=== PATIENT | female | born 1960 | race African-American/Black ===

== ENCOUNTER 2022-01-22 15:19 | Emergency (ER) | payer MEDICARE, OTHER ==
[2022-01-22] MEDS ORDERED: hydrALAZINE 20 MG/ML VIAL ONE ×2 (16:10→18:33)
[2022-01-22 16:41] LABS: #Eosinphils 0.1 10x3/uL (0.0-0.5); #Monocytes 0.5 10x3/uL (0.0-1.1); #Neutrophils 3.2 10x3/uL (1.5-8.4); %Basophils 0.3 % (0.0-2.0); %Lymphocytes 43.8 % (18.0-47.0); %Monocytes 7.6 % (0.0-10.0); Hemoglobin 10.4 g/dL (12.0-15.5); Mean Corpuscular Hemoglobin 26.5 pg (27.0-33.0); Mean Corpuscular Volume 85.5 fl (81.6-98.3); Mean Platelet Volume 10.1 fl (7.4-10.4); Platelet Count 316 10x3/uL (150-450); RBC Distribution Width 13.2 % (11.5-14.5); Red Blood Cell (RBC) Count 3.93 10x6/uL (3.90-5.03); White Blood Cell (WBC) Count 6.7 10x3/uL (3.5-10.5)
[2022-01-22 16:51] LABS: ALT (SGPT) 17 U/L (8-55); AST (SGOT) 20 U/L (5-34); Albumin 4.2 g/dL (3.4-4.8); Alkaline Phosphatase 83 U/L (40-110); Anion Gap 12 mmol/L (10-20); BUN (Urea Nitrogen) 10 mg/dL (9.8-20.1); Bilirubin, Total 0.3 mg/dL (0.2-1.2); Calc. Creatinine Clearance 0 mL/min (70-130); Calcium 10.1 mg/dL (7.8-10.44); Carbon Dioxide 31 mmol/L (23-31); Chloride 102 mmol/L (98-107); Estimated GFR 81; Globulin 3.4 g/dL (2.4-3.5); Glucose 93 mg/dL (80-115); Protein, Total 7.6 g/dL (5.8-8.1); Sodium 141 mmol/L (136-145)
== END 2022-01-22 19:00 | disposition home or self-care (01) ==
LOC: CSHERS 15:19
DX: I10 Essential (primary) hypertension (principal)
CPT/HCPCS: 36415; 80053; 84484; 85025; 96374; 96376; J0360

== ENCOUNTER 2024-03-18 12:15 | Emergency (ER) | payer OTHER ==
[2024-03-18] MEDS ORDERED: Iopamidol 370 76% 100 ML VIAL ONE (13:12)
[2024-03-18] MEDS ORDERED: Ketorolac Tromethamine 30 MG (1 mL) VIAL ONE (13:44)
[2024-03-18] MEDS ORDERED: Ondansetron PF 4 MG/2 ML Vial ONE (13:44)
[2024-03-18 14:07] LABS: #Basophils 0.02 10x3/uL (0.0-0.2); #Monocytes 0.98 10x3/uL (0.0-1.1); #Neutrophils 7.89 10x3/uL (1.5-8.4); %Basophils 0.2 % (0.0-2.0); %Lymphocytes 16.8 % (18.0-47.0); %Monocytes 9.1 % (0.0-10.0); %Neutrophils 73.5 % (40.0-75.0); Hemoglobin 10.7 g/dL (12.0-15.5); Mean Corpuscular HGB CONC 31.5 g/dL (32.0-36.0); Mean Corpuscular Hemoglobin 29.8 pg (27.0-33.0); Mean Corpuscular Volume 94.7 fL (81.6-98.3); Platelet Count 155 10x3/uL (150-450); RBC Distribution Width 13.6 % (11.5-14.5); Red Blood Cell (RBC) Count 3.59 10x6/uL (3.90-5.03); White Blood Cell (WBC) Count 10.7 10x3/uL (3.5-10.5)
[2024-03-18 14:20] LABS: Bilirubin Neg (Negative); Blood, Urine 250 (Negative); Clarity Slightly Cloudy (Clear); Glucose, Urine (Dipstick) Normal (Negative); Ketone, Urine Negative (Negative); Leukocyte 25 (Negative); Nitrite Positive (Negative); Protein, Urine (Dipstick) 100 mg/dl (Neg-Trace); pH, Urine 6.5 (5.0-9.0)
[2024-03-18 14:22] LABS: ALT (SGPT) 23 U/L (8-55); AST (SGOT) 45 U/L (5-34); Albumin 3.3 g/dL (3.4-4.8); Alkaline Phosphatase 101 U/L (40-110); Anion Gap 16 mmol/L (10-20); BUN (Urea Nitrogen) 9 mg/dL (9.8-20.1); Bilirubin, Total 0.7 mg/dL (0.2-1.2); Calc. Creatinine Clearance 0 mL/min (70-130); Calcium 9.6 mg/dL (7.8-10.44); Carbon Dioxide 29 mmol/L (23-31); Chloride 96 mmol/L (98-107); Estimated GFR 62; Globulin 4.1 g/dL (2.4-3.5); Glucose 113 mg/dL (80-115); Lipase 13 U/L (8-78); Magnesium 1.9 mg/dL (1.6-2.6); Potassium 3.4 mmol/L (3.5-5.1); Protein, Total 7.4 g/dL (5.8-8.1); Sodium 138 mmol/L (136-145)
[2024-03-18] MEDS ORDERED: Acetaminophen 500 MG TAB ONE (14:26)
[2024-03-18] MEDS ORDERED: Aspirin Chewable 81 MG TAB ONE (14:29)
[2024-03-18 14:30] LABS: Critical Call Chem Troponin I NUR.AAJ @1430; Troponin I 0.404 ng/mL (< 0.028)
[2024-03-18] MEDS ORDERED: Magnesium 2 GM/50 ML BAG (IN WATER) ONE (14:33)
[2024-03-18] MEDS ORDERED: Labetalol HCl 100 MG/20 ML VIAL ONE (14:33)
[2024-03-18 14:41] LABS: Bacteria/HPF 4+ HPF (None Seen); CAUTI Indications for Culture Pelvic or flank pain; RBC/HPF 0-3 HPF (0-3); Squamous Epithelial Greater than 50 HPF (0-3)
[2024-03-18 14:43] LABS: Urine Culture Reflex No No
[2024-03-18] MEDS ORDERED: cefTRIAXone (ROCEPHIN) 2 GM VIAL ONE (15:19)
[2024-03-18] MEDS ORDERED: Heparin 25,000 units/D5W 500 ML ONE (15:43)
[2024-03-18] MEDS ORDERED: Heparin 10,000 UNITS/ 10 ML VIAL ONE (15:46)
[2024-03-18 15:55] LABS: INR-International Normal Ratio 1.2; Prothrombin Time 12.5 sec (9.5-12.1)
[2024-03-18 16:07] LABS: PTT 21.2 sec (22.0-33.0)
== END 2024-03-18 17:35 | disposition short-term general hospital (02) ==
LOC: CSHERS 12:15
DX: I26.99 Other pulmonary embolism without acute cor pulmonale (principal); N39.0 Urinary tract infection, site not specified; I11.0 Hypertensive heart disease with heart failure; I50.9 Heart failure, unspecified; I21.3 ST elevation (STEMI) myocardial infarction of unspecified site; R09.02 Hypoxemia
CPT/HCPCS: 36415; 71045; 71275; 80053; 81001; 83690; 83735; 83880; 84484; 85025; 85610; 85730; 93005; J0696; J1644; J1885; J2405; J3475; Q9967

== ENCOUNTER 2024-12-25 01:09 | Observation (INO) | payer MEDICARE, OTHER ==
[2024-12-25] MEDS ORDERED: Nitroglycerin 2% Ointment 1 INCH/1 GM Packet ONE (02:03)
[2024-12-25] MEDS ORDERED: Acetaminophen 500 MG TAB ONE (02:04)
[2024-12-25 02:19] LABS: #Basophils Less than 0.03 10x3/uL (0.0-0.2); #Eosinophils 0.11 10x3/uL (0.0-0.5); #Monocytes 0.55 10x3/uL (0.0-1.1); #Neutrophils 3.63 10x3/uL (1.5-8.4); %Basophils 0.3 % (0.0-2.0); %Eosinophils 1.4 % (0.0-6.0); %Lymphocytes 44.1 % (18.0-47.0); %Monocytes 7.1 % (0.0-10.0); %Neutrophils 47.0 % (40.0-75.0); Hematocrit 32.9 % (34.9-44.5); Hemoglobin 10.6 g/dL (12.0-15.5); Mean Corpuscular Hemoglobin 29.5 pg (27.0-33.0); Mean Corpuscular Volume 91.6 fL (81.6-98.3); Platelet Count 285 10x3/uL (150-450); Red Blood Cell (RBC) Count 3.59 10x6/uL (3.90-5.03); White Blood Cell (WBC) Count 7.73 10x3/uL (3.5-10.5)
[2024-12-25 02:35] LABS: ALT (SGPT) 13 U/L (Less than 34); AST (SGOT) 15 U/L (11-34); Albumin 3.5 g/dL (3.1-4.5); Alkaline Phosphatase 87 U/L (40-110); Anion Gap 17 mmol/L (10-20); BUN (Urea Nitrogen) 12 mg/dL (9.8-20.1); Bilirubin, Total 0.2 mg/dL (0.3-1.2); Calc. Creatinine Clearance 0 mL/min (70-130); Calcium 9.0 mg/dL (7.8-10.44); Carbon Dioxide 25 mmol/L (23-31); Chloride 103 mmol/L (98-107); Globulin 3.7 g/dL (2.4-3.5); Glucose 117 mg/dL (80-115); Potassium 3.6 mmol/L (3.5-5.1); Sodium 141 mmol/L (136-145)
[2024-12-25 02:41] LABS: Troponin I 0.020 ng/mL (< 0.028)
[2024-12-25] MEDS ORDERED: hydrALAZINE 20 MG/ML VIAL ONE (02:49)
[2024-12-25 05:00] VITALS: BMI 56.2
[2024-12-25] MEDS ORDERED: Nitroglycerin 0.4 MG TAB (25 Tab Bottle) SL PRN (05:36)
[2024-12-25] MEDS: HYDROcodone/Acetaminophen 10/325 mg Tablet PO PRN (05:52)
[2024-12-25] MEDS: Aspirin 325 MG TAB PO SCH (05:53)
[2024-12-25 06:33] LABS: Troponin I 0.043 ng/mL (< 0.028)
[2024-12-25] MEDS: Lisinopril 20 MG TAB PO SCH (08:40)
[2024-12-25] MEDS: Enoxaparin 40 MG (0.4 mL) SYRINGE SC SCH (08:41)
[2024-12-25 09:31] LABS: Troponin I 0.031 ng/mL (< 0.028)
[2024-12-25] MEDS: Carvedilol 6.25 MG TAB PO SCH (16:53)
[2024-12-26 04:44] LABS: Cardiac Risk 4.9 (Less than 4.5); Cholesterol 192.0 mg/dl (< 200 Desired); HDL Cholesterol 39.0 mg/dL (>60 Neg Risk); LDL Cholesterol, Calculated 126.0 mg/dL; Triglycerides 134.0 mg/dL (Less than 150)
[2024-12-26] MEDS ORDERED: Lidocaine 2% Viscous Solution 10 ML, Aluminum & Magnesium Hydroxide 30 ML SSW SCH (13:45)
[2024-12-26] MEDS: Acetaminophen 500 MG TAB PO SCH (13:59)
[2024-12-26 14:16] VITALS: TEMP 96.8
[2024-12-26 14:17] VITALS: BP 148/86
== END 2024-12-26 16:55 | disposition home or self-care (01) ==
LOC: CSHERS 01:09 → CSHTELE 03:21
PROVIDERS: ADMIT Hospitalist; ATTEND Hospitalist
PROC: B24BZZZ Ultrasonography of Heart with Aorta (ICD-10-PCS; principal; 2024-12-25)
DX: R07.2 Precordial pain (principal); R06.02 Shortness of breath; R61 Generalized hyperhidrosis; I10 Essential (primary) hypertension; I26.99 Other pulmonary embolism without acute cor pulmonale; G89.29 Other chronic pain; M54.30 Sciatica, unspecified side; E66.01 Morbid (severe) obesity due to excess calories; Z68.43 Body mass index [BMI] 50.0-59.9, adult; Z90.710 Acquired absence of both cervix and uterus; Z88.8 Allergy status to other drugs, medicaments and biological substances; Z88.2 Allergy status to sulfonamides; Z79.01 Long term (current) use of anticoagulants; Z79.899 Other long term (current) drug therapy
CPT/HCPCS: 71045; 80053; 80061; 83880; 84484 ×2; 85025; 93005; 93306; 96372 ×2; 96374; 99285; G0378 ×3; J0360; J1650 ×2; 36415